=== PATIENT | male | born 1995 | race Hispanic/Latino ===

== ENCOUNTER 2017-12-19 07:30 | Emergency (ER) | payer SELFPAY ==
--- NOTE | 2017-12-19 08:17 | ED PDOC ---
HPI: Cardiac Arrest Time Seen by Provider: 12/19/17 07:39 Chief Complaint (Nursing): Cardiac Arrest Chief Complaint (Provider): Overdose History Per: EMS Reason For Code Blue: Unresponsive Circumstances: Brought To ED By EMS Arrest Witnessed By: No One CPR Initiated Prior To MD Arrival?: Yes Down-Time Before ACLS: Unknown Treatment Initiated Prior To MD Arrival: CPR (at the seen) Additional Complaint(s): 22 y/o male brought in by EMS after being found unresponsive on the street. As per PD and EMS, patient is known to use Heroin. As per [place] Police, patient had 2 bags of heroin on the scene. As per EMS, 6 minutes of CPR and narcan was given with no response prior to pronunciation. Unknown downtime. It is unknown at this time of the patient's PMHx and whether the patient was taking medication. Time of called on the scene at approximately 0715 by Medical Services, Dr. Rodrigez at [facility]. EMS was told to transport the patient here for further pronunciation as the patient was already in the bed of the ambulance. PMD: none - Initial Findings Mentation: Unresponsive Respirations: None (Assisted) Pulse: None Rhythm: Asystole Past Medical History Reviewed: Historical Data, Nursing Documentation, Vital Signs - Medical History PMH: No Chronic Diseases - Surgical History Surgical History: No Surg Hx - Family History Family History: States: Unknown Family Hx - Social History Drugs: Opiates (Heroin) - Allergies Allergies/Adverse Reactions: Allergies Allergy/AdvReac Type Severity Reaction Status Date / Time No Known Allergies Allergy Verified 12/19/17 07:36 Review of Systems Review Of Systems: ROS cannot be obtained secondary to pt's inabilty to answer questions. Physical Exam - Reviewed Nursing Documentation Reviewed: Yes Vital Signs Reviewed: Yes - Physical Exam Appears: Positive for: In Acute Distress Head Exam: Positive for: ATRAUMATIC Skin: Positive for: Pallor Eye Exam: Positive for: Other (Pupils fixed and dialated ). Negative for: EOMI, PERRL Cardiovascular/Chest: Positive for: Other (No cardiac activity noted). Negative for: Regular Rate, Rhythm, Bradycardia, Tachycardia Respiratory: Positive for: Other (No lung sounds noted on exam). Negative for: Normal Breath Sounds Gastrointestinal/Abdominal: Negative for: Distended Back: Positive for: Normal Inspection Extremity: Positive for: Other (Not moving extremities. rigor mortis). Negative for: Normal ROM Neurologic/Psych: Positive for: Other (Unresponsive). Negative for: Alert, Oriented - Critical Care Total Time (In Min): 30 Documented Critical Care: Time excludes all time spent performint seperately billable procedures Medical Decision Making Medical Decision Making: Time: 714 -- Dr. Rodrigez of [facility] reported to EMS to terminate all care at the scene and pronounced Time of . Time: 724 -- Patient brought to the ER for further pronunciation. No cardiac activity, asystole, pupils fixed and dilated, extremities clench, unresponsive. Time: 728 -- Time of pronounced. Scribe Attestation: Documented by Marisela Dinh, acting as a scribe for Elier Rebolledo MD. Provider Scribe Attestation: All medical record entries made by the Scribe were at my direction and personally dictated by me. I have reviewed the chart and agree that the record accurately reflects my personal performance of the history, physical exam, medical decision making, and the department course for this patient. I have also personally directed, reviewed, and agree with the discharge instructions and disposition. Disposition - Clinical Impression Clinical Impression: Cardiac arrest - Patient ED Disposition Is Patient to be Admitted: No - Disposition Disposition: Other Institution Disposition Time: : Condition:
[2017-12-19 13:30] VITALS: TEMP 82
== END 2017-12-19 12:30 ==
LOC: H.ER 07:30
DX: I46.9 Cardiac arrest, cause unspecified (principal)